=== PATIENT | male | born 1935 | race Caucasian/White ===

== ENCOUNTER 2022-12-12 13:18 | Inpatient (IN) | payer OTHER ==
[~2022-12-12] VITALS: Ht 162.6 cm; Wt 70.5 kg
[2022-12-12 13:46] LABS: BASOPHILS % (AUTO) 0.5 % (0-1); EOSINOPHILS # (AUTO) 0.2 X10'3 (0-0.9); EOSINOPHILS % (AUTO) 5.1 % (0-6); HEMATOCRIT 39.8 % (42.0-52.0); LYMPHOCYTES # (AUTO) 0.5 X10'3 (1.1-4.8); LYMPHOCYTES % (AUTO) 11.2 % (21-51); MEAN CORPUSCULAR HEMOGLOBIN 32.7 PG (27.0-31.0); MEAN CORPUSCULAR HGB CONC 32.6 g/dL (33.0-36.5); MEAN CORPUSCULAR VOLUME 100.2 FL (78-98); MEAN PLATELET VOLUME 7.7 FL (7.4-10.4); MONOCYTES # (AUTO) 0.6 X10'3 (0-0.9); MONOCYTES % (AUTO) 15.3 % (2-12); NEUTROPHILS # (AUTO) 2.8 X10'3 (1.8-7.7); NEUTROPHILS % (AUTO) 67.9 % (42-75); PLATELET COUNT 217 X10'3 (140-440); RED BLOOD COUNT 3.98 X10'6 (4.70-6.10); RED CELL DISTRIBUTION WIDTH 16.3 % (11.5-14.5); WHITE BLOOD COUNT 4.2 X10'3 (4.5-11.0)
[2022-12-12 14:05] LABS: ALANINE AMINOTRANSFERASE 25 U/L (12-78); ALBUMIN 3.2 G/DL (3.4-5.0); ALBUMIN/GLOBULIN RATIO 0.8 (1.1-1.5); ALKALINE PHOSPHATASE 186 IU/L (46-116); ANION GAP 11 (8-16); ASPARTATE AMINO TRANSFERASE 25 U/L (10-37); BLOOD UREA NITROGEN 31 MG/DL (7-18); BUN/CREATININE RATIO 23.3 (10.0-20.0); CALCIUM 8.4 MG/DL (8.5-10.1); CHLORIDE 101 MMOL/L (99-107); CREATININE 1.33 MG/DL (0.60-1.10); GLUCOSE 100 MG/DL (70-104); POTASSIUM 3.7 MMOL/L (3.5-5.1); SODIUM 141 MMOL/L (135-145); TOTAL CARBON DIOXIDE 29.5 MMOL/L (24-32); eGFR 51 ML/MIN
[2022-12-12 14:11] LABS: PRO BRAIN NATRIURETIC PEPTIDE 6984 PG/ML (0-450)
[2022-12-12] MEDS ORDERED: nitroGLYCERIN 0.4mg/hour patch TD ONE (17:50)
[2022-12-12] MEDS ORDERED: aspirin 81mg tab.chew PO ONE (17:50)
[2022-12-12] MEDS ORDERED: normal saline 1000ml 1,000 ML IV SCH (20:50)
[2022-12-12] MEDS ORDERED: diphenhydrAMINE 25mg capsule PO PRN (20:50)
[2022-12-12] MEDS ORDERED: acetaminophen 325mg tablet PO PRN (20:50)
[2022-12-12] MEDS ORDERED: magnesium hydroxide 30ml (MOM) UD suspension PO PRN (20:50)
[2022-12-12] MEDS ORDERED: acetaminophen 650mg rectal suppository RC PRN (20:50)
[2022-12-12] MEDS ORDERED: mag hydrox/Alum hydrox/simeth 30ml oral suspension PO PRN (20:50)
[2022-12-12] MEDS ORDERED: morphine 2 MG/ML inj. syringe IV PRN (20:50)
[2022-12-12] MEDS ORDERED: bisacodyl 10mg suppository rectal RC PRN (20:50)
[2022-12-12] MEDS ORDERED: ondansetron/PF 4mg/2ml inj IV PRN (20:50)
[2022-12-12] MEDS ORDERED: diphenhydrAMINE 50 mg/ml inj IV PRN (20:50)
[2022-12-12] MEDS ORDERED: ondansetron 4mg rapidly disintigrating tab PO PRN (20:50)
[2022-12-12] MEDS ORDERED: pantoprazole 40mg IV 80 MG in normal saline 100ml IV soln 100 ML IV ONE (20:55)
[2022-12-12] MEDS ORDERED: temazepam 15mg capsule PO PRN (21:00)
[2022-12-12] MEDS ORDERED: pantoprazole 40MG/NS 100ML BAG 100 ML IV ONE ×2 (21:05→21:20)
[2022-12-12] MEDS ORDERED: ROPINIRole 1mg tablet PO ONE (22:05)
[2022-12-12 22:09] LABS: BILIRUBIN,URINE NEGATIVE (Neg); CLARITY,URINE CLEAR (Clear); COLOR,URINE STRAW (Yellow); GLUCOSE, URINE NEGATIVE (Neg); KETONES,URINE NEGATIVE (Neg); LEUKOCYTE ESTERASE ,URINE NEGATIVE (Neg); NITRITES, URINE NEGATIVE (Neg); OCCULT BLOOD,URINE NEGATIVE (Neg); PH,URINE 5.5 (4.8-8.0); PROTEIN,URINE NEGATIVE (Neg); UROBILINOGEN,URINE 0.2 E.U/dL (0.2-1.0)
[2022-12-12 22:13] LABS: UA COLLECTION TYPE CLN CATCH MIDSTREAM
[2022-12-12 22:14] LABS: CREATINE KINASE 44 U/L (39-308); LIPASE < 50 U/L (73-393); MAGNESIUM 1.9 MG/DL (1.5-2.4); THYROID STIMULATING HORMONE 0.49 ulU/ml (0.34-4.50)
[2022-12-12 22:20] VITALS: RESP 14; O2SAT 94
[2022-12-12 22:25] VITALS: BP 110/55; PULSE 73; RESP 16; TEMP 97.6; O2SAT 92
[2022-12-12 22:29] LABS: OSMOLALITY 298 MOSM/K (280-300)
[2022-12-12] MEDS ORDERED: ROPI2TAB53 PO (23:23)
[2022-12-12] MEDS ORDERED: FLO0.4C PO (23:23)
[2022-12-12] MEDS ORDERED: NITR0.4T51 SL (23:23)
[2022-12-12] MEDS ORDERED: GUAI600T45 PO (23:23)
[2022-12-12] MEDS ORDERED: CHOL100046 PO (23:23)
[2022-12-12] MEDS ORDERED: FERR325T29 PO (23:23)
[2022-12-12] MEDS ORDERED: POTA-207 PO (23:23)
[2022-12-12] MEDS ORDERED: ATOR40TA72 PO (23:23)
[2022-12-12] MEDS ORDERED: METO-395 PO (23:23)
[2022-12-12] MEDS ORDERED: ALBU2.5V10 NEB (23:23)
[2022-12-12] MEDS ORDERED: ISOS60TA71 PO (23:23)
[2022-12-12] MEDS ORDERED: CYAN500T71 PO (23:23)
[2022-12-12] MEDS ORDERED: LEVO112T5 PO (23:23)
[2022-12-12] MEDS ORDERED: RIVA20TA PO (23:23)
[2022-12-12] MEDS ORDERED: TORS20TA3 PO (23:23)
[2022-12-12] MEDS: HYDROcodone/acetaminophen 5mg/325mg tablet PO PRN (23:34)
[2022-12-12] MEDS ORDERED: nitroGLYCERIN 0.4mg SUBLingual tab SL PRN (23:40)
[2022-12-12] MEDS ORDERED: albuterol 2.5 MG/3 ML nebule NEB PRN (23:40)
[2022-12-13] VITALS (9 sets, daily range): BP systolic 107–157; BP diastolic 52–76; PULSE 63–81; RESP 16–18; TEMP 97.2–98.6; O2SAT 91–97
[2022-12-13] MEDS ORDERED: heparin, porcine 5000 units/ml vial SQ SCH
--- NOTE | 2022-12-13 06:33 | NUR ---
Patient in room [facility]TH[facility] 4009. I have received report from Cate and had the opportunity to ask questions and assume patient care.
--- NOTE | 2022-12-13 06:43 | NUR ---
Problems reprioritized. Patient report given, questions answered & plan of care reviewed with ANDRA MCGRATH.
[2022-12-13] MEDS ORDERED: levoTHYROXINE 112mcg tablet PO SCH (07:30)
[2022-12-13 07:55] LABS: BASOPHILS % (AUTO) 0.8 % (0-1); EOSINOPHILS # (AUTO) 0.3 X10'3 (0-0.9); EOSINOPHILS % (AUTO) 8.1 % (0-6); HEMATOCRIT 37.8 % (42.0-52.0); HEMOGLOBIN 12.4 g/dl (14.0-17.9); LYMPHOCYTES # (AUTO) 0.4 X10'3 (1.1-4.8); MEAN CORPUSCULAR HEMOGLOBIN 32.7 PG (27.0-31.0); MEAN CORPUSCULAR HGB CONC 32.8 g/dL (33.0-36.5); MEAN CORPUSCULAR VOLUME 99.6 FL (78-98); MEAN PLATELET VOLUME 7.5 FL (7.4-10.4); MONOCYTES # (AUTO) 0.6 X10'3 (0-0.9); MONOCYTES % (AUTO) 13.7 % (2-12); NEUTROPHILS # (AUTO) 2.8 X10'3 (1.8-7.7); NEUTROPHILS % (AUTO) 67.4 % (42-75); PLATELET COUNT 204 X10'3 (140-440); RED BLOOD COUNT 3.79 X10'6 (4.70-6.10); WHITE BLOOD COUNT 4.2 X10'3 (4.5-11.0)
[2022-12-13 07:58] LABS: APTT 33 SECONDS (22-32); D-DIMER 0.45 MG/L FEU (0-0.50); INR 1.1 INR; PROTHROMBIN TIME 11.7 SECONDS (9.0-12.0)
[2022-12-13] MEDS ORDERED: ROPINIRole 1mg tablet PO SCH (08:00)
[2022-12-13] MEDS ORDERED: furosemide 10 MG/1 ML 10ml inj IV SCH (08:00)
[2022-12-13] MEDS ORDERED: metoprolol succinate 25mg (24-HOUR) SR. Tablet PO SCH ×2 (08:00→09:02)
[2022-12-13] MEDS ORDERED: docusate sod 100mg capsule PO SCH (08:00)
[2022-12-13] MEDS ORDERED: atorvastatin 20mg tablet PO SCH (08:00)
[2022-12-13 08:03] LABS: ALANINE AMINOTRANSFERASE 24 U/L (12-78); ALBUMIN 2.7 G/DL (3.4-5.0); ALBUMIN/GLOBULIN RATIO 0.8 (1.1-1.5); ALKALINE PHOSPHATASE 167 IU/L (46-116); ANION GAP 6 (8-16); ASPARTATE AMINO TRANSFERASE 22 U/L (10-37); BILIRUBIN,TOTAL 0.6 MG/DL (0.1-1.0); BLOOD UREA NITROGEN 32 MG/DL (7-18); BUN/CREATININE RATIO 28.1 (10.0-20.0); CALCIUM 8.8 MG/DL (8.5-10.1); CHLORIDE 103 MMOL/L (99-107); CHOLESTEROL 116 MG/DL (0-200); CREATININE 1.14 MG/DL (0.60-1.10); GLUCOSE 110 MG/DL (70-104); HDL CHOLESTEROL 59 MG/DL (35-60); LDL CHOLESTEROL 45 MG/DL (50-100); POTASSIUM 3.8 MMOL/L (3.5-5.1); SODIUM 141 MMOL/L (135-145); TOTAL CARBON DIOXIDE 32.5 MMOL/L (24-32); TOTAL PROTEIN 6.3 G/DL (6.4-8.2); TRIGLYCERIDES 66 MG/DL (20-135); eCRCL 40 ML/MIN; eGFR 61 ML/MIN
[2022-12-13] MEDS ORDERED: aspirin 81mg tab.chew PO SCH (08:30)
[2022-12-13] MEDS: isosorbide mononitrate 30mg tab.SR.24H PO SCH (08:43)
[2022-12-13] MEDS: ferrous sulfate 325mg tablet PO SCH (08:43)
[2022-12-13] MEDS: guaiFENesin ER 600mg tablet PO SCH ×2 (08:44→20:47)
[2022-12-13] MEDS: atorvastatin 20mg tablet PO SCH (08:44)
[2022-12-13] MEDS: HYDROcodone/acetaminophen 5mg/325mg tablet PO PRN ×3 (08:45→22:58)
[2022-12-13] MEDS ORDERED: furosemide 20 MG/2 ML vial IV SCH (09:01)
[2022-12-13] MEDS: ROPINIRole 1mg tablet PO SCH ×3 (09:35→20:47)
[2022-12-13] MEDS ORDERED: morphine 2 MG/ML inj. syringe IV PRN (09:35)
[2022-12-13] MEDS: nitroGLYCERIN 0.1mg/hour patch TD SCH (09:55)
[2022-12-13] MEDS: metoprolol succinate 25mg (24-HOUR) SR. Tablet PO SCH (10:14)
--- NOTE | 2022-12-13 12:24 | NUR ---
Malnutrition consult: Pt reports 10 lb unintentional wt loss per consult. Pt seen at bedside with SO present. Pt reports UBW 165 lbs and states ABW is unknown though believes he probably weighs 155 lbs with wt loss occurring in just a couple of weeks. Unfortunately current wt isn't scaled and pt with no wt hx in EMR. Patient's SO states pt has been eating less though pt reports he now just eats until he's not hungry rather than eating until he is full and reports relying on restaurants for food as him and his SO just moved to [place] from [place]. Pt states he gets full quicker at meals which results in more snacking. Pt believes he is still getting adequate caloric intake. No visible fat or muscle wasting appreciated. Pt with no documented decrease in muscle strength though with BLE 2+ mild edema. Pt currently lacks a minimum of two criteria for malnutrition though will continue to monitor s/s of malnutrition. Pt states his appetite is okay, currently on a heart healthy diet and documented with average 63% PO intake of first meal which is decent for geriatric age. Pt denies food allergies or difficulty chewing/swallowing. Pt agrees to smoothies and cottage cheese with meals, d/w dietary. Pt states he generally does not like Ensure d/t it being too sweet. RD discussed different ways to utilize ONS to assist with increasing nutrient intake. ONS coupons provided to pt/SO. Pt denies constipation or diarrhea. LBM 12/11 per EMR. Pt/SO provided with RD contact information and encouraged to reach out if needed. Will continue to follow. Addendum: 12/13/22 at [address] Amended: Links added.
[2022-12-13] MEDS ORDERED: rivaroxaban 20mg tablet PO SCH (17:00)
[2022-12-13] MEDS ORDERED: tamsulosin 0.4mg capsule PO SCH (18:00)
--- NOTE | 2022-12-13 18:36 | NUR ---
Problems reprioritized. Patient report given, questions answered & plan of care reviewed with Fatemeh.
--- NOTE | 2022-12-13 18:40 | NUR ---
Patient in room [facility]TH[facility] 4009. I have received report from ANDRA MCGRATH and had the opportunity to ask questions and assume patient care.
[2022-12-14] VITALS (11 sets, daily range): BP systolic 100–126; BP diastolic 44–58; PULSE 74–87; RESP 16–76; TEMP 97.5–98.3; O2SAT 92–96
--- NOTE | 2022-12-14 00:45 | NUR ---
CALLED DR. MALIK AND WAS INFORMED PATIENT HAD LARGE BOWEL MOVEMENT SOFT AND BLOODY. STOOL SENT FOR OCCULT BLOOD, WITH ORDERS TO HOLD ALL ANTI COAGULANT AND START PROTONIX DRIP.
[2022-12-14] MEDS: pantoprazole 40MG/NS 100ML BAG 100 ML IV SCH ×3 (01:13→11:00)
[2022-12-14 02:16] LABS: OCCULT BLOOD STOOL POSITIVE (Neg)
--- NOTE | 2022-12-14 06:33 | NUR ---
Problems reprioritized. Patient report given, questions answered & plan of care reviewed with BRENDEN MCGRATH.
[2022-12-14] MEDS ORDERED: levoTHYROXINE 100mcg tablet PO SCH (07:30)
--- NOTE | 2022-12-14 07:52 | NUR ---
Patient in room [facility]TH[facility] 4009. I have received report from GERI NEVAREZ RN and had the opportunity to ask questions and assume patient care.
[2022-12-14 08:11] LABS: BASOPHILS % (AUTO) 0.8 % (0-1); EOSINOPHILS # (AUTO) 0.3 X10'3 (0-0.9); EOSINOPHILS % (AUTO) 8.1 % (0-6); HEMATOCRIT 33.8 % (42.0-52.0); HEMOGLOBIN 11.1 g/dl (14.0-17.9); LYMPHOCYTES # (AUTO) 0.4 X10'3 (1.1-4.8); MEAN CORPUSCULAR HEMOGLOBIN 32.7 PG (27.0-31.0); MEAN CORPUSCULAR HGB CONC 32.7 g/dL (33.0-36.5); MEAN PLATELET VOLUME 7.6 FL (7.4-10.4); MONOCYTES # (AUTO) 0.5 X10'3 (0-0.9); MONOCYTES % (AUTO) 14.3 % (2-12); NEUTROPHILS # (AUTO) 2.4 X10'3 (1.8-7.7); NEUTROPHILS % (AUTO) 66.8 % (42-75); PLATELET COUNT 199 X10'3 (140-440); RED BLOOD COUNT 3.38 X10'6 (4.70-6.10); RED CELL DISTRIBUTION WIDTH 16.3 % (11.5-14.5); WHITE BLOOD COUNT 3.6 X10'3 (4.5-11.0)
[2022-12-14] MEDS: ferrous sulfate 325mg tablet PO SCH (08:20)
[2022-12-14] MEDS: guaiFENesin ER 600mg tablet PO SCH (08:21)
[2022-12-14] MEDS: ROPINIRole 1mg tablet PO SCH ×2 (08:21→13:28)
[2022-12-14] MEDS: atorvastatin 20mg tablet PO SCH (08:22)
[2022-12-14 08:37] LABS: ALANINE AMINOTRANSFERASE 20 U/L (12-78); ALBUMIN 2.4 G/DL (3.4-5.0); ALBUMIN/GLOBULIN RATIO 0.7 (1.1-1.5); ALKALINE PHOSPHATASE 140 IU/L (46-116); ANION GAP 5 (8-16); ASPARTATE AMINO TRANSFERASE 21 U/L (10-37); BILIRUBIN,TOTAL 0.5 MG/DL (0.1-1.0); BLOOD UREA NITROGEN 28 MG/DL (7-18); BUN/CREATININE RATIO 27.7 (10.0-20.0); CALCIUM 8.7 MG/DL (8.5-10.1); CHLORIDE 104 MMOL/L (99-107); CREATININE 1.01 MG/DL (0.60-1.10); GLUCOSE 113 MG/DL (70-104); SODIUM 141 MMOL/L (135-145); TOTAL CARBON DIOXIDE 31.6 MMOL/L (24-32); TOTAL PROTEIN 5.7 G/DL (6.4-8.2); eCRCL 45 ML/MIN; eGFR 70 ML/MIN
--- NOTE | 2022-12-14 08:55 | NUR ---
HELD BP MEDICATION D/T UPCOMING STRESS TEST.INCLUDING BETA SARMAD, AND LASIX, NITRO PATCH. WILL GIVE PT. MEDS AFTER TEST AND NEW BP CHECK. NOTIFIED
[2022-12-14] MEDS ORDERED: regadenoson 0.4mg/5ml syringe IV ONE (09:40)
--- NOTE | 2022-12-14 10:19 | NUR ---
pt has finished stress test, used restroom, needs min assist to transfer from wheelchair to toilet, had bowel movement with small blood clots, dark red color.
[2022-12-14] MEDS: nitroGLYCERIN 0.1mg/hour patch TD SCH (11:08)
[2022-12-14] MEDS: metoprolol succinate 25mg (24-HOUR) SR. Tablet PO SCH (11:08)
[2022-12-14] MEDS: isosorbide mononitrate 30mg tab.SR.24H PO SCH (11:08)
[2022-12-14 12:04] LABS: HEMATOCRIT 36.4 % (42.0-52.0); HEMOGLOBIN 11.9 g/dl (14.0-17.9); MEAN CORPUSCULAR HEMOGLOBIN 32.8 PG (27.0-31.0); MEAN CORPUSCULAR HGB CONC 32.5 g/dL (33.0-36.5); MEAN CORPUSCULAR VOLUME 100.7 FL (78-98); MEAN PLATELET VOLUME 7.4 FL (7.4-10.4); PLATELET COUNT 210 X10'3 (140-440); RED BLOOD COUNT 3.62 X10'6 (4.70-6.10); RED CELL DISTRIBUTION WIDTH 16.4 % (11.5-14.5); WHITE BLOOD COUNT 4.6 X10'3 (4.5-11.0)
[2022-12-14] MEDS ORDERED: TORS20TA3 PO (13:47)
[2022-12-14] MEDS ORDERED: ROPI2TAB53 PO (13:47)
[2022-12-14] MEDS ORDERED: FLO0.4C PO (13:47)
[2022-12-14] MEDS ORDERED: LEVO100T9 PO (13:47)
[2022-12-14] MEDS ORDERED: POTA-207 PO (13:53)
--- NOTE | 2022-12-14 14:47 | NUR ---
PT. ALERT AND ORIENTATED AND STABLE ON DISCHARGE. PT. IV CANULA WHOLE AND INTACT UPON REMOVAL. PT. EDUCATED ON MODIFIED CURRENT HOME MEDICATIONS AND ONES STOPPED BY MD. PT. EDUCATED ON S/S OF SEVERE BLEEDING AND WHEN TO COME TO THE ER. PT. EDUCATED TO FOLLOW UP WITH A PRIMARY CARE PROVIDER WITHIN 1WEEK AND TO GET A CBC DONE. PT. ESCORTED SAFELY INTO PRIVATE VEHICLE WITH SPOUSE. PT. LEFT WITH ALL BELONGINGS.
[2022-12-14] MEDS ORDERED: OMEP20CA15 PO (15:57)
== END 2022-12-14 14:50 | disposition home or self-care (01) | DRG 280 ==
LOC: ER 13:19 → ED HOLD 20:54 → ORTHO 4S 22:20
PROVIDERS: ADMIT Family Medicine; ATTEND Family Medicine
PROC: 4A02XM4 Measurement of Cardiac Total Activity, External Approach (ICD-10-PCS; principal; 2022-12-14)
PROC: 3E033HZ Introduction of Radioactive Substance into Peripheral Vein, Percutaneous Approach (ICD-10-PCS; 2022-12-14)
DX: R07.89 Other chest pain (principal); I21.A1 Myocardial infarction type 2; I50.43 Acute on chronic combined systolic (congestive) and diastolic (congestive) heart failure; J96.01 Acute respiratory failure with hypoxia; I13.0 Hypertensive heart and chronic kidney disease with heart failure and stage 1 through stage 4 chronic kidney disease, or unspecified chronic kidney disease; N17.9 Acute kidney failure, unspecified; D64.9 Anemia, unspecified; J44.9 Chronic obstructive pulmonary disease, unspecified; M25.512 Pain in left shoulder; G25.81 Restless legs syndrome; N18.9 Chronic kidney disease, unspecified; I25.10 Atherosclerotic heart disease of native coronary artery without angina pectoris; I48.91 Unspecified atrial fibrillation; N40.0 Benign prostatic hyperplasia without lower urinary tract symptoms; E88.09 Other disorders of plasma-protein metabolism, not elsewhere classified; Z79.899 Other long term (current) drug therapy; Z79.01 Long term (current) use of anticoagulants; Z87.891 Personal history of nicotine dependence; Z95.2 Presence of prosthetic heart valve; Z95.0 Presence of cardiac pacemaker; I25.2 Old myocardial infarction
CPT/HCPCS: 36415; 71045; 78452; 80053; 80061; 81003; 82272; 82550; 83036; 83690; 83735; 83880; 83930; 84443; 84484; 85025; 85027; 85379; 85610; 85730; 87081; 93005; 93017; 93306; 94760; 97116; 97161; 97530; 99285; A9500; C9113; G0378; J1940; J2785; J7030

== ENCOUNTER 2023-02-27 16:01 | Emergency (ER) | payer BC, OTHER ==
[~2023-02-27] VITALS: Ht 162.6 cm; Wt 73.0 kg
[~2023-02-27 16:01] MED LIST: ALBU2.5V10 NEB; ATOR40TA72 PO; CHOL100046 PO; CYAN500T71 PO; FERR325T29 PO; FLO0.4C PO; GUAI600T45 PO; ISOS60TA71 PO; LEVO100T9 PO; METO-395 PO; NITR0.4T51 SL; OMEP20CA15 PO; POTA-207 PO; RIVA20TA PO; ROPI2TAB53 PO; TORS20TA3 PO
[2023-02-27] MEDS ORDERED: TRAM50TA2 PO (18:28)
[2023-02-27] MEDS ORDERED: LIDO700A32 TOP (18:28)
[2023-02-27 18:58] VITALS: BP 120/60; PULSE 85; RESP 18; TEMP 98; O2SAT 98
== END 2023-02-27 19:01 | disposition home or self-care (01) ==
LOC: ER 16:01
DX: S30.810A Abrasion of lower back and pelvis, initial encounter (principal); M54.50 Low back pain, unspecified; I48.91 Unspecified atrial fibrillation; I25.10 Atherosclerotic heart disease of native coronary artery without angina pectoris; I10 Essential (primary) hypertension; J44.9 Chronic obstructive pulmonary disease, unspecified; Z79.899 Other long term (current) drug therapy; W01.0XXA Fall on same level from slipping, tripping and stumbling without subsequent striking against object, initial encounter; Y93.89 Activity, other specified; Y92.89 Other specified places as the place of occurrence of the external cause; Y99.8 Other external cause status
CPT/HCPCS: 72131; 99284; A4615

== ENCOUNTER 2023-04-13 09:50 | Emergency (ER) | payer BC ==
[~2023-04-13] VITALS: Ht 154.9 cm; Wt 72.9 kg
[~2023-04-13 09:50] MED LIST changes: +LIDO700A32 TOP
[2023-04-13 10:34] LABS: BASOPHILS % (AUTO) 0.9 % (0-1); EOSINOPHILS # (AUTO) 0.1 X10'3 (0-0.9); EOSINOPHILS % (AUTO) 1.4 % (0-6); HEMATOCRIT 35.8 % (42.0-52.0); HEMOGLOBIN 11.5 g/dl (14.0-17.9); LYMPHOCYTES # (AUTO) 0.7 X10'3 (1.1-4.8); LYMPHOCYTES % (AUTO) 15.6 % (21-51); MEAN CORPUSCULAR HEMOGLOBIN 30.5 PG (27.0-31.0); MEAN CORPUSCULAR HGB CONC 32.2 g/dL (33.0-36.5); MEAN CORPUSCULAR VOLUME 94.7 FL (78-98); MEAN PLATELET VOLUME 7.5 FL (7.4-10.4); MONOCYTES # (AUTO) 0.5 X10'3 (0-0.9); MONOCYTES % (AUTO) 10.2 % (2-12); NEUTROPHILS # (AUTO) 3.4 X10'3 (1.8-7.7); NEUTROPHILS % (AUTO) 71.9 % (42-75); PLATELET COUNT 142 X10'3 (140-440); RED BLOOD COUNT 3.78 X10'6 (4.70-6.10); RED CELL DISTRIBUTION WIDTH 16.3 % (11.5-14.5); WHITE BLOOD COUNT 4.7 X10'3 (4.5-11.0)
[2023-04-13 10:55] LABS: ALBUMIN 3.6 G/DL (3.4-5.0); ANION GAP 10 (8-16); BILIRUBIN,TOTAL 0.6 MG/DL (0.1-1.0); BLOOD UREA NITROGEN 40 MG/DL (7-18); BUN/CREATININE RATIO 19.2 (10.0-20.0); CALCIUM 7.8 MG/DL (8.5-10.1); CHLORIDE 98 MMOL/L (99-107); CREATININE 2.08 MG/DL (0.60-1.10); GLUCOSE 103 MG/DL (70-104); POTASSIUM 4.5 MMOL/L (3.5-5.1); SODIUM 135 MMOL/L (135-145); TOTAL CARBON DIOXIDE 27.4 MMOL/L (24-32); TOTAL PROTEIN 7.3 G/DL (6.4-8.2); eGFR 30 ML/MIN
[2023-04-13 10:56] LABS: ALANINE AMINOTRANSFERASE 29 U/L (12-78); ALKALINE PHOSPHATASE 214 IU/L (46-116); ASPARTATE AMINO TRANSFERASE 34 U/L (10-37)
[2023-04-13 11:00] LABS: PRO BRAIN NATRIURETIC PEPTIDE 6023 PG/ML (0-450)
[2023-04-13 15:01] VITALS: BP 110/59; PULSE 80; RESP 16; TEMP 97.8; O2SAT 96
== END 2023-04-13 20:32 | disposition left against medical advice (07) ==
LOC: ER 09:51
DX: R07.89 Other chest pain (principal); Z53.21 Procedure and treatment not carried out due to patient leaving prior to being seen by health care provider
CPT/HCPCS: 36415; 71045; 80053; 83880; 84484; 85025; 93005; 99281